=== PATIENT | female | born 1980 ===

== ENCOUNTER 2024-08-11 09:45 | Outpatient (REF) | payer OTHER, SELFPAY | END 2024-08-11 09:46 | disposition home or self-care (01) | LOC: HO.LNP 09:45 | PROVIDERS: PCP Internal Medicine; Visit Provider Advanced Practice Midwife | DX: Z01.419 Encounter for gynecological examination (general) (routine) without abnormal findings (principal); F17.200 Nicotine dependence, unspecified, uncomplicated; Z98.890 Other specified postprocedural states | CPT/HCPCS: 88175; 99386; 99459 ==

== ENCOUNTER 2024-08-11 09:45 | Outpatient (AMB) | payer OTHER, SELFPAY ==
[2024-08-11 09:53] VITALS: BP 128/80; BMI 33.3
--- NOTE | 2024-08-11 09:53 | MHC.OFFVIS ---
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 Present Allergies No Known Allergies [No Known Allergies*] Allergy (Verified 08/11/24 09:55) Medication List - Last Reconciled 08/11/24 by Laurita Barrett CNM amitriptyline 25 mg PO DAILY ammonia solution, strong-msm 1.5 % ea topical clotrimazole 1% 1 appl topical BID duloxetine-lidocaine 30 mg- 4% (Duloxicaine) DULOXETINE: Take 1 (30 mg) tablet once daily; LIDOCAINE CREAM: apply to affected area(s) 3 to 4 times daily lamotrigine 25 mg PO DAILY mirtazapine 45 mg PO DAILY tizanidine 2 mg PO Q8H PRN triamcinolone acetonide 0.025% 1 appl topical TID zolpidem (Ambien) 10 mg PO BEDTIME PRN Is last menstrual period known: No Post menopausal: Yes 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 She says she saw this provider many years ago through the [facility]. Records are not available easily in the system today. In her chart it says that she has a history of a total abdominal hysterectomy however there is no record in this hospital system of that. in the old [facility] system I found records from 12/11/2016 of a D&C and polypectomy done by Dr. Charles Olivo. on 01/29/2019 she had a hysteroscopy D&C with the removal of an IUD that had become dislodged. on 05/30/2019 she had an endometrial ablation all surgeries with Dr. Charles Olivo. patient says she also had an appendectomy. Patient had 3 vaginal births in [place] followed by a tubal ligation /burning of the tubes. she has a primary care provider in [place] but says appointments are very limited to what ever the issue is of the day and she has not had a full primary care visit in a very long time she does not know when she has been checked for pre diabetes or anything like that. She does have an appointment coming up this month for follow-up of something . not had a mammogram more than once. she remembered that I tested her in 2017 and found that she had some STD and she could not remember what it was but looked it up in Google translate in her phone and it was chlamydia. she has been with her partner for the last 6 years and says everything is very good and they are completely monogamous. she does smoke a a pack of cigarettes a day and says it is very hard to quit she thinks it is because her mind keeps working all the time she has mental health issues for which she is on medications and sees a psychiatrist and a therapist. [facility] Surgical History (Updated 08/11/24 @ 10:57 by Laurita Barrett CNM) History of oral surgery History of total abdominal hysterectomy and bilateral salpingo-oophorectomy History of tubal ligation History of section Female Reproductive History Menstrual Age of Menarche: 10 control method: permanent sterilization Total pregnancies: 3 Full term: 3 Date of last pap smear: 07/04/16 Physical Exam Vital Signs: Last Vital Signs BP 128/80 08/11/24 09:53 BMI result Body Mass Index 33.3 Const Other: patient is a heavy smoker 1 pack per day. facing slitter exam multiparous scarred cervix present fairly normal appearing whitish homogeneous discharge will await testing results to see if there is anything to treat uterus difficult to palpate secondary to adipose but cervix is long close thick mobile nontender no adnexal tenderness extremely good tone with Kegel. General: healthy appearing, comfortable, no acute distress, well developed and alert Nutritional Appearance: average body habitus Orientation/consciousness: patient oriented x3 Limitations: no limitations HEENT Head: Yes normocephalic Neck Neck: Yes normal visual inspection Chest Chest palpation & inspection: normal inspection of the chest Breast/axilla inspection: normal inspection of the breasts and normal inspection of the axillae Breast/axilla palpation: normal palpation of the breasts and normal palpation of the axillae Resp Effort & Inspection: normal respiratory effort GI Inspection: Yes normal to inspection, No Abdominal wall edema and No distended Palpation (GI): Soft to palpation and nontender Other: external exam within normal limits though her skin appears somewhat rashy she and also dusky from smoking. vagina pink and moist there is a whitish homogeneous discharge we will await cultures to see if there is anything to treat cervix is multiparous and scarred especially on left cervix long close thick mobile nontender uterus difficult to feel but mobile nontender adnexa nontender good tone with Kegel. General: Yes bladder normal to palpation External Female Exam: normal external appearance and normal appearance of the urethra Speculum Exam - Vagina: normal appearance of the vagina, normal palpation and normal vaginal discharge Speculum Exam - Cervix: normal appearance of the cervix, normal palpation and nontender Bimanual exam- vagina & uterus: normal bimanual exam, normal palpation, uterine size normal, bladder normal to palpation, consistency normal, normal palpation, uterine mobility normal, uterine shape normal, No Cervical tenderness present, non-tender and no cervical motion tenderness Bimanual Exam- Adnexa, other: normal adnexae, no masses, normal and No adnexal tenderness Neuro General: patient oriented x3 Assessment & Plan Assessment & Plan (1) Breast cancer screening: Code(s): Z12.39 - Encounter for other screening for malignant neoplasm of breast Category: Medical (2) Women's annual routine gynecological examination: Code(s): Z01.419 - Encounter for gynecological examination (general) (routine) without abnormal findings Category: Medical (3) Smoker unmotivated to quit: Code(s): F17.200 - Nicotine dependence, unspecified, uncomplicated Category: Social Hx (4) Cervical cancer screening: Code(s): Z12.4 - Encounter for screening for malignant neoplasm of cervix Category: Medical (5) Encounter for screening examination for sexually transmitted disease: Code(s): Z11.3 - Encounter for screening for infections with a predominantly sexual mode of transmission Category: Medical (6) History of endometrial ablation: Comment: 05/30/[address] Olivo. Code(s): Z98.890 - Other specified postprocedural states Category: Surgical Plan -----Discussed in this visit the following: healthy balanced diet, regular and consistent exercise, getting recommended health screens, doing the best she can for her particular health concerns, kegel exercises, pap smear screening and followup recommendations, mammography screening and SBE, normal changes in cycles in her life stage--- . Pap smear was done as well as cultures we will see if there is anything to treat after they come back.. Mammogram is ordered I did discuss smoking cessation with the patient.. RTC 1 year efforts made to correct entries into her chart made by others. See HPI for some of the details and see the problem list for some of the details. Orders: Orders Pap Smear Today Z00.00 - Encounter for general adult medical examination without abnormal findings CT NG by PCR Today N89.8 - Other specified noninflammatory disorders of vagina, Z20.2 - Contact with and (suspected) exposure to infections with a predominantly sexual mode of transmission Bacterial Vaginosis Panel Today N89.8 - Other specified noninflammatory disorders of vagina MM tomosynthesis screening BI Today Z12.31 - Encounter for screening mammogram for malignant neoplasm of breast, Z12.39 - Encounter for other screening for malignant neoplasm of breast Coding Level of Care Code New Pt Prev Care 40-64y([id number]) Diagnoses Breast cancer screening Z12.39 Women's annual routine gynecological examination Z01.419 Smoker unmotivated to quit F17.200 Cervical cancer screening Z12.4 Encounter for screening examination for sexually transmitted disease Z11.3 History of endometrial ablation Z98.890
== END 2024-08-11 10:50 | disposition home or self-care (01) ==
LOC: HO.HWS 09:45
PROVIDERS: PCP Internal Medicine; Visit Provider Advanced Practice Midwife
DX: Z01.419 Encounter for gynecological examination (general) (routine) without abnormal findings (principal); F17.200 Nicotine dependence, unspecified, uncomplicated
CPT/HCPCS: 99386; 99459

== ENCOUNTER 2024-08-11 10:44 | Outpatient (REF) | payer OTHER, SELFPAY ==
[2024-08-11 16:53] LABS: Bacterial Vaginosis PCR POSITIVE (Negative); Candida Group PCR NOT DETECTED (Not Detect); Candida glab krusei PCR NOT DETECTED (Not Detect); Trichomonas vaginalis PCR NOT DETECTED (Not Detect)
[2024-08-11 17:25] LABS: CT PCR NOT DETECTED (Not Detect.); NG PCR NOT DETECTED (Not Detect.)
[2024-08-15 11:16] LABS: HPV Genotype 16 Negative (Negative); HPV Genotype 18 Negative (Negative); HPV High Risk Negative (Negative)
== END 2024-08-11 10:45 | disposition home or self-care (01) ==
LOC: HO.LAB 10:44
PROVIDERS: Visit Provider Advanced Practice Midwife
DX: Z00.00 Encounter for general adult medical examination without abnormal findings (principal); Z20.2 Contact with and (suspected) exposure to infections with a predominantly sexual mode of transmission; N89.8 Other specified noninflammatory disorders of vagina
CPT/HCPCS: 81515; 87491; 87591; 87626